=== PATIENT | male | born 1955 | race Caucasian/White ===

== ENCOUNTER → 2016-12-04 | Outpatient (CLI) | payer BC, OTHER ==
[~2016-12-04] MED LIST: ATENOLOL25 MG PO; BENAZEPRIL HCL10 MG PO
--- NOTE | ~2016-12-04 | TH ---
Unit #: [id number] #: [id number] Patient: AMY HARRISON [id number] [facility]. [id number] [place], [place] [address] [id number] O MR#: [id number] NAME: AMY HARRISON : 1955 SEX: M STUDY DATE/TIME: UNIT: [facility] ROOM: STUDY DESCRIPTION: Nuclear Study Attending Physician: Oneida Olmos M.D. Referring Physician: Oneida Olmos M.D. Primary Care Physician: Basim Armijo M.D. CARDIOLOGY REPORT EXAM Lexiscan Cardiolite Stress Test - Nuclear Portion PROCEDURE Using technetium 99m labeled Cardiolite, rest and stress SPECT images were obtained. Multiple SPECT images were obtained in various views including horizontal and vertical long axis and short axis views of the left ventricle. Images were obtained by gated SPECT method. The patient was administered 10.43 mCi of Cardiolite at rest. The patient was administered 29.8 mCi of Cardiolite after Lexiscan infusion was completed. On the stress images, there is an extremely large area of severe decreased isotope activity involving the entire anterior, anteroapical and anterolateral wall of the left ventricle. The rest images also show a large area of severe decreased isotope activity involving the anterior, anteroapical and anterolateral wall of the left ventricle. Comparing rest and stress images, there is suspicion for large myocardial infarction involving the anterior wall, anteroapical, and anterolateral wall of the left ventricle with some daniel-infarct ischemia involving the lateral wall. The left ventricular ejection fraction is calculated to be 37% which appears to be an overestimation. There is akinesis involving the anterior and the anteroapical wall. The left ventricular cavity is moderate to severely dilated, both at rest and post stress. CONCLUSION 1. Suspicion for large myocardial infarction involving the entire anterior wall, anteroapical and anterolateral wall of the left ventricle with daniel-infarct ischemia involving the lateral wall. 2. The left ventricular ejection fraction is calculated to be 37% which appears to be an overestimation. 3. There is akinesis involving the entire anterior and the anteroapical wall. 4. The left ventricular cavity is moderate to severely dilated, both at rest and post stress. 5. 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 Unit #: [id number] #: [id number] Patient: HUNTERAMY Dictated by..Isiah Berry TD: 12/05/2016 05:39 JOB #: [id number] CARDIOLOGY REPORT X Oneida Olmos MD <ELECTRONICALLY SIGNED> 04/12/17 1429 CARDIOLOGY REPORT
--- NOTE | ~2016-12-04 | ST ---
Unit #: [id number] #: [id number] Patient: AMY HARRISON [id number] [facility]. [address] [address] [id number] O MR#: [id number] NAME: AMY HARRISON : 1955 SEX: M STUDY DATE/TIME: 12/04/2016 UNIT: [facility] ROOM: STUDY DESCRIPTION: Walking Lexiscan stress test Attending Physician: Oneida Olmos M.D. Referring Physician: Oneida Olmos M.D. Primary Care Physician: Basim Armijo M.D. CARDIOLOGY REPORT PROCEDURE PERFORMED Walking Lexiscan Cardiolite. REASON FOR EXAM History of coronary artery disease status post CABG in 2014. PROCEDURE Baseline EKG shows sinus bradycardia, first-degree AV block, right bundle branch block, cannot rule out previous inferior MS, nonspecific ST-T wave abnormalities noted. The patient walked on the treadmill at a slow rate and was injected with 0.4 mg of Lexiscan per protocol, followed by Cardiolite. During the testing, the patient experienced some shortness of breath but denied any chest pain. There were no changes noted to the ST segments during the testing. He did have occasional PVCs, some multifocal, both during the infusion and in the recovery period. The test was stopped secondary to protocol completion. CONCLUSIONS 1. Nondiagnostic EKG portion of Lexiscan Cardiolite. 2. No ST segment or ST-T wave changes noted during the infusion suggestive of ischemia. 3. The patient denied any complaints of chest pain. He did have some shortness of breath during the infusion. This resolved in the recovery period. 4. There were occasional PVCs, including multifocal, both during the infusion, as well as in the recovery period. 5. Please correlate with nuclear images. Dictated by... Nichole Keyes A.P.R.N. for Oneida Olmos M.D. LMW/db TD: 12/04/2016 10:34 Unit #: [id number] #: [id number] Patient: AMY HARRISON JOB #: [id number] CARDIOLOGY REPORT X Nichole Keyes APRN CARDIOLOGY REPORT
== END | disposition home or self-care (01) ==
LOC: CNUC 07:40
DX: I25.10 Atherosclerotic heart disease of native coronary artery without angina pectoris (principal); I49.3 Ventricular premature depolarization
CPT/HCPCS: 78452; 93017; A9500; J2785

== ENCOUNTER 2017-03-14 09:56 | Emergency (ER) | payer BC, OTHER ==
--- NOTE | ~2017-03-14 | CO ---
Unit #: [id number] #: [id number] Patient: AMY HARRISON [id number] [facility] [address]. [place], [place] [address] [id number] MR#: [id number] NAME: AMY HARRISON ROOM: Age: 61 Sex: M Admission Date: 03/14/2017 : 1955 Attending Physician: Michael Rashid M.D. Primary Care Physician: Basim Armijo M.D. Consultation Date: 03/14/2017 CONSULTATION REPORT PATIENT IDENTIFICATION A 61-year-old right-handed male, evaluated in the ER at [facility]. SOURCE OF INFORMATION Obtained from the EMS and the patient's family at the bedside. HISTORY OF PRESENT ILLNESS This patient was seen by Dr. Murphy and myself as part of code stroke, rapid response. EMS called ahead about 8 minutes prior to arrival with possible stroke patient and I met the patient in the ER upon arrival. He arrived at approximately at [address] Rashid, the ER physician, and myself saw the patient at the door. The patient had an obvious right hemiparesis and was globally aphasic. EMS reported the patient has last known well was approximately 9:00 a.m. as he was running errands prior to that, got in the shower around 9 o'clock, and his son heard him fall and it was at that time, that he called 911. We brought the patient straight over to CT as his vital signs were stable, put him on the monitor and CT scan, and got a head CT of head without. At that time, I spoke with the patient's who was in the waiting room via telephone who states that the patient is on a blood thinner. She believes that it started with an E, that she sees commercials for it on TV. When I asked her if it was Eliquis, she said she believes that is what it was. She states that he took all of his medicines as recently as last night. Thus, we were concerned about treating him with alteplase. His CT of the head showed a dense left MCA sign concerning for left middle cerebral artery territory ischemic stroke. At the time of evaluation, the patient's NIH is 20. I called and spoke with Dr. Ramirez with the Stroke Team at [facility], who recommended that the patient be transferred there emergently for possible thrombectomy. We got the patient back to the ER and started him on normal saline at 100 mL an hour for a total of 1 L and EMS met us in the ER and the nurse called report to [facility]. I spoke via the [facility] with Dr. Kelvin Da Silva, the ED physician, who is accepting the patient in the [facility] ER. The patient left via EMS for [facility] at 1050 hours with EMS has understanding that the patient was to go to [facility] ER. We informed the patient's and son that he was going to [facility], they left at that time to drive to [facility] to meet the patient there. Total critical care, decision making was from the time of arrival at 0956 hours to 1030 hours regarding decision making, consultation with [facility] Stroke Team, discussion with the patient's and son, and evaluation and assessment of the patient. Unit #: [id number] #: [id number] Patient: AMY HARRISON Dictated by... Katerina St A.P.R.N. for Isiah Walter/belkis TD: 03/14/2017 16:59 JOB #: [id number] CONSULTATION REPORT Page 1 of [address] [facility]MC[facility] SPECIALIST X CONSULTATION REPORT
--- NOTE | ~2017-03-14 | EKG ---
PATIENT: AMY HARRISON UNIT #: [id number] Ventricular Rate: 60 BPM Atrial Rate: 60 BPM P-R Interval: 388 ms QRS Duration: 130 ms Q-T Interval: 438 ms QTC Calculation(Bezet): 438 ms P [place]: -4 degrees Calculated R [place]: -79 degrees Calculated T [place]: -76 degrees Diagnosis Line: Atrial-paced rhythm with prolonged AV conduction Diagnosis Line: Left axis deviation Diagnosis Line: Right bundle branch block Diagnosis Line: Anterolateral infarct (cited on or before Diagnosis Line: 28-SEP-2014) Diagnosis Line: Abnormal ECG Diagnosis Line: When compared with ECG of 05-OCT-2014 08:14, Diagnosis Line: PVC's absent Diagnosis Line: IVCD present RBBB type Diagnosis Line: Confirmed by BARBER VIVAR MD ([id number]) on Diagnosis Line: 03/15/2017 2:56:55 PM INTERPRETING MD: SHAUNA
--- NOTE | ~2017-03-14 | CT72 ---
[facility] A Service of [facility] & [facility] RADIOLOGY TEXT RESULTS PATIENT: AMY HARRISON LOCATION: [facility] : 53 UNIT #: [id number] AGE: [address]: Michael Rashid MD SEX: M ORDER DR: [id number] [facility] [place], [place] [address] [id number] MR#: [id number] Acc #: [id number] NAME: AMY HARRISON : 1955 SEX: M STUDY DATE/TIME: 03/14/2017 10:06 UNIT: [facility] ROOM: STUDY DESCRIPTION: CT Head Wo Contrast Stroke Attending Physician: Michael Rashid M.D. Ordering Physician: Michael Rashid M.D. Primary Care Physician: Basim Armijo M.D. MEDICAL IMAGING REPORT This report is preliminary unless electronic signature is present REVISED REPORT EXAM Head CT without contrast 03/14/2017 HISTORY Acute onset focal neurologic deficit. Patient unable to speak beginning at 09:15 a.m. this morning. Altered mental status. Patient demonstrates weakness, inability to move right side of body today. FINDINGS Multiple axial images were obtained from the skull base to vertex without intravenous contrast administration. The examination is markedly abnormal, demonstrating hyperdense left MCA sign characteristic of hyperdense thrombus within the left middle cerebral artery and acute stroke. No corresponding brain parenchymal changes are seen at this time. Specifically there is no edema, mass or mass effect or hemorrhage. Findings were immediately called to the ordering clinician in the [place] emergency department at 10:14 a.m. on 03/14/2017. The visualized paranasal sinuses are clear. TECHNIQUE THIS CT EXAM WAS PERFORMED WITH ONE OR MORE OF THE FOLLOWING RADIATION DOSE REDUCTION TECHNIQUES: AUTOMATIC EXPOSURE CONTROL, ADJUSTMENT OF MA AND/OR KV ACCORDING TO PATIENT SIZE, AND ITERATIVE RECONSTRUCTION. IMPRESSION Markedly abnormal examination demonstrating hyperdense left MCA sign characteristic of acute left middle cerebral artery distribution stroke. No corresponding parenchymal changes are seen within the brain at this time. Clinical correlation recommended. Findings immediately called to the ordering clinician at 10:14 a.m. on 03/14/2017. STS. [facility] A Service of [facility] & [facility] RADIOLOGY TEXT RESULTS PATIENT: [facility] HARRISON [id number] [birth year] UNIT #: [id number] AGE: [address]: Michael Rashid MD SEX: M ORDER DR: STAT RESULT Dictated by... Louis Rausch M.D. THIS IS AN ELECTRONICALLY VERIFIED REPORT Louis Rausch M.D. at 03/17/2017 9:29 AM MIRYAM/los TD: 03/14/2017 10:37 JOB #: [id number] MEDICAL IMAGING REPORT Page 1 of 1 COPY
[2017-03-14 10:19] LABS: BASOPHIL# 0.1 X10e3 (0-0.3); BASOPHIL% 1.1 % (0-2.5); EOSINOPHIL# 0.1 X10e3 (0-0.7); EOSINOPHIL% 1.2 % (0.0-7.0); HEMATOCRIT 45.6 % (38.0-50.0); HEMOGLOBIN 14.9 gm/dL (13.0-16.0); LYMPHOCYTE# 1.7 X10e3 (1.0-3.5); LYMPHOCYTE% 23.2 % (17.0-45.0); MEAN CELL VOLUME 87.3 FL (83-96); MEAN CORPUSCULAR HEMOGLOBIN 28.5 PG (28-34); MEAN CORPUSCULAR HGB CONC 32.7 g/dL (30-36); MEAN PLATELET VOLUME 8.6 FL (6.5-11.5); MONOCYTE# 0.6 X10e3 (0-1.0); MONOCYTE% 8.7 % (3.0-12.0); NEUTROPHIL# 4.8 X10e3 (1.5-7.1); NEUTROPHIL% 65.8 % (40-75); PLATELET COUNT 202 X10e3 (140-420); RED BLOOD COUNT 5.22 X10e (3.90-5.60); RED CELL DISTRIBUTION WIDTH 14.2 % (11.0-15.5); WHITE BLOOD COUNT 7.2 X10e3 (4.0-10.5)
[2017-03-14 10:20] LABS: DIFF IND NO
[2017-03-14 10:31] LABS: INR 1.1; PROTHROMBIN TIME (PATIENT) 11.7 SECONDS (10.0-11.7)
[2017-03-14 10:40] LABS: ALBUMIN SERUM 4.2 g/dL (3.5-5.0); BILIRUBIN, DIRECT 0.1 mg/dL (0.0-0.2); BILIRUBIN,INDIRECT 0.6 mg/dL (0.0-0.9); BILIRUBIN,TOTAL 0.7 mg/dL (0.2-2.0); BUN/CREATININE RATIO 12.85; CALCIUM SERUM 8.5 mg/dL (8.4-10.2); CREATININE SERUM 1.4 mg/dL (0.6-1.4); GLOM FILT RATE Estimated 53.5 mL/min (>60); POTASSIUM 4.2 mmol/L (3.5-5.1); PROTEIN TOTAL SERUM 6.6 g/dL (6.0-8.3)
[2017-03-14 13:01] LABS: POC - CREATININE 1.24 mg/dL (0.64-1.27); POC - GFR >60.0 mL/min (>60)
== END 2017-03-14 10:50 | disposition short-term general hospital (02) ==
LOC: CED 09:56
PROVIDERS: Emergency Medicine
DX: I63.512 Cerebral infarction due to unspecified occlusion or stenosis of left middle cerebral artery (principal)
CPT/HCPCS: 36415; 70450; 80048; 80076; 82565; 82947; 85025; 85610; 85730; 93005; 99285